=== PATIENT | female | born 1945 | race Caucasian/White ===

== ENCOUNTER 2017-02-13 10:46 | Emergency (ER) | payer MEDICARE ==
[~2017-02-13] VITALS: Ht 157.5 cm; Wt 64.0 kg
[2017-02-13] MEDS ORDERED: NORCO1 TA1 PO (11:33)
[2017-02-13 12:00] VITALS: BP 188/88
== END 2017-02-13 12:00 | disposition home or self-care (01) ==
LOC: ED 10:46
PROC: 2W3HX1Z Immobilization of Left Thumb using Splint (ICD-10-PCS; principal; 2017-02-13)
DX: S52.502A Unspecified fracture of the lower end of left radius, initial encounter for closed fracture (principal); V18.0XXA Pedal cycle driver injured in noncollision transport accident in nontraffic accident, initial encounter; Y92.488 Other paved roadways as the place of occurrence of the external cause; Y93.55 Activity, bike riding

== ENCOUNTER 2020-03-21 09:55 | Emergency (ER) | payer MEDICARE ==
[~2020-03-21] VITALS: Ht 154.9 cm; Wt 64.5 kg
[~2020-03-21 09:55] MED LIST: NORCO1 TA1 PO
[2020-03-21] MEDS ORDERED: SYNTHROID75 MCG PO (10:35)
[2020-03-21] MEDS ORDERED: PRAVASTATIN SOD20 MG PO (10:35)
[2020-03-21] MEDS ORDERED: LOSARTAN POTASS50 MG PO (10:36)
[2020-03-21] MEDS ORDERED: OMEPRAZOLE10 MG PO (10:36)
[2020-03-21 11:27] VITALS: BP 130/89
[2020-03-21] MEDS ORDERED: TESSALON PER100 MG PO (11:27)
[2020-03-21] MEDS ORDERED: ZITHROMAX250 MG PO (11:27)
--- NOTE | 2020-03-23 09:26 | NUR ---
Notified patient of positive Covid results. Advised patient to return to ED with SOB or difficulty breathing. Patient c/o "flu symptoms, achy feeling". Advised patient to quarantine until contacted by the [facility] with further instructions. Patient verbalized understanding.
== END 2020-03-21 11:33 | disposition home or self-care (01) ==
LOC: ED 09:55
DX: U07.1 COVID-19 (principal); R52 Pain, unspecified; I10 Essential (primary) hypertension; E78.5 Hyperlipidemia, unspecified; K21.9 Gastro-esophageal reflux disease without esophagitis

== ENCOUNTER 2022-02-23 19:11 | Emergency (ER) | payer MEDICARE ==
[~2022-02-23] VITALS: Ht 154.9 cm; Wt 63.6 kg
[~2022-02-23 19:11] MED LIST changes: +LOSARTAN POTASS50 MG PO; +OMEPRAZOLE10 MG PO; +PRAVASTATIN SOD20 MG PO; +SYNTHROID75 MCG PO; +TESSALON PER100 MG PO; +ZITHROMAX250 MG PO
[2022-02-23 19:24] VITALS: BP 170/87
[2022-02-23 19:30] VITALS: BP 159/85
[2022-02-23 19:45] VITALS: BP 162/79
[2022-02-23] MEDS ORDERED: GENTAMICIN SULF5 ML OS (19:57)
[2022-02-23 20:20] VITALS: BP 162/79
== END 2022-02-23 20:40 | disposition home or self-care (01) ==
LOC: ED 19:11
DX: T54.3X1A Toxic effect of corrosive alkalis and alkali-like substances, accidental (unintentional), initial encounter (principal); H10.212 Acute toxic conjunctivitis, left eye; I10 Essential (primary) hypertension; E78.5 Hyperlipidemia, unspecified; K21.9 Gastro-esophageal reflux disease without esophagitis